=== PATIENT | female | born 1995 | race Caucasian/White ===

== ENCOUNTER 2017-01-13 13:14 | Emergency (ER) | payer OTHER ==
--- NOTE | 2017-01-13 14:03 | EDPHY ---
H & P Stated Complaint: Vomiting Time Seen by Provider: 01/13/17 13:51 HPI/ROS: CHIEF COMPLAINT: Vomiting HISTORY OF PRESENT ILLNESS: The patient is a 21-year-old female who comes to the emergency department from the urgent care but is currently asymptomatic. She had 2 episodes of vomiting this morning presented to the urgent care where she had lab work done [place] [id number]. They sent her here with concern for sepsis. She has a benign abdomen. She has not had diarrhea. She has not had a fever. She states that she now feels completely asymptomatic after receiving IV fluids and Zofran at the urgent care. They also commented that she had a positive H pylori however she denies having any heartburn or chest pain type symptoms. REVIEW OF SYSTEMS: Constitutional: denies: chills, fever, recent illness, recent injury EENTM: denies: blurred vision, double vision, nose congestion Respiratory: denies: cough, shortness of breath Cardiac: denies: chest pain, irregular heart rate, lightheadedness, palpitations Gastrointestinal/Abdominal: See HPI Genitourinary: denies: dysuria, frequency, hematuria, pain Musculoskeletal: denies: joint pain, muscle pain Skin: denies: lesions, rash, jaundice, bruising Neurological: denies: headache, numbness, paresthesia, tingling, dizziness, weakness Hematologic/Lymphatic: denies: blood clots, easy bleeding, easy bruising Immunologic/allergic: denies: HIV/AIDS, transplant EXAM: GENERAL: Well-appearing, well-nourished and in no acute distress. HEAD: Atraumatic, normocephalic. EYES: Pupils equal round and reactive to light, extraocular movements intact, sclera anicteric, conjunctiva are normal. ENT: TMs normal, nares patent, oropharynx clear without exudates. Moist mucous membranes. NECK: Normal range of motion, supple without lymphadenopathy or JVD. LUNGS: Breath sounds clear to auscultation bilaterally and equal. No wheezes rales or rhonchi. HEART: Regular rate and rhythm without murmurs, rubs or gallops. ABDOMEN: Soft, nontender, normoactive bowel sounds. No guarding, no rebound. No masses appreciated. BACK: No CVA tenderness, no spinal tenderness, step-offs or deformities EXTREMITIES: Normal range of motion, no pitting or edema. No clubbing or cyanosis. NEUROLOGICAL: Cranial nerves II through XII grossly intact. Normal speech, normal gait. 5/5 strength, normal movement in all extremities, normal sensation PSYCH: Normal mood, normal affect. SKIN: Warm, dry, normal turgor, no visible rashes or lesions. Source: Patient Exam Limitations: No limitations - Personal History LMP (Females 10-55): Extended Cycle BCP/Inj Current Tetanus/Diphtheria Vaccine: Yes Current Tetanus Diphtheria and Acellular Pertussis (TDAP): Yes Tetanus Vaccine Date: 2014 - Medical/Surgical History Hx Asthma: No Hx Chronic Respiratory Disease: No Hx Diabetes: No Hx Cardiac Disease: No Hx Renal Disease: No Hx Cirrhosis: No Hx Alcoholism: No Hx HIV/AIDS: No Hx Splenectomy or Spleen Trauma: No Other PMH: sports injuries - Family History Significant Family History: No pertinent family hx - Social History Smoking Status: Never smoked Alcohol Use: Sober Drug Use: None Constitutional: Initial Vital Signs Temperature (C) 37.1 C 01/13/17 13:31 Heart Rate 88 01/13/17 13:31 Respiratory Rate 16 01/13/17 13:31 Blood Pressure 135/75 H 01/13/17 13:31 O2 Sat (%) 97 01/13/17 13:31 O2 Delivery Mode Room Air Allergies/Adverse Reactions: No Known Allergies Allergy (Unverified 01/13/17 13:30) Home Medications: Medication Instructions Recorded Cyclobenzaprine 01/13/17 Depo-Provera 01/13/17 Diazepam 01/13/17 Zofran 01/13/17 Medical Decision Making ED Course/Re-evaluation: The patient's abdominal exam is benign. She has received a Zofran prescription from the urgent care. I do not feel that any further workup is indicated at this time. Patient is happy with this and declines further testing. We discussed indications for returning. 2:00 p.m. we attempted to call to the urgent care but they stated that the left for the day and they were not sure why she was sent here. Differential Diagnosis: Partial list of the Differential diagnosis considered include but were not limited to; gastritis, food poisoning, urinary bowel disease and although unlikely based on the history and physical exam, I also considered ulcerative colitis, peptic ulcer disease, . I discussed these differential diagnoses and the plan with the patient as well as the usual and expected course. The patient understands that the diagnosis is provisional and that in medicine we are not always correct and that further workup is often warranted. Usual and customary warnings were given. All of the patient's questions were answered. The patient was instructed to return to the emergency department should the symptoms at all worsen or return, otherwise to followup with the physician as we discussed. Departure - Departure Disposition: Home, Routine, Self-Care Clinical Impression: Acute gastroenteritis Condition: Fair Instructions: Acute Nausea and Vomiting (ED) Referrals: Dennise Gruber MD [Primary Care Provider] - As per Instructions
[2017-01-13 14:12] VITALS: BP 128/74; PULSE 70; RESP 14; TEMP 98.4; O2SAT 94
== END 2017-01-13 14:10 | disposition home or self-care (01) ==
DX: K52.9 Noninfective gastroenteritis and colitis, unspecified (principal)

== ENCOUNTER 2017-01-14 02:25 | Emergency (ER) | payer OTHER ==
[2017-01-14 02:50] LABS: % IMMATURE GRANULYOCYTES 0.6 % (0.0-1.1); ABSOLUTE IMMATURE GRANULOCYTES 0.13 10^3/uL (0.00-0.10); ADD DIFF? NO; ADD MORPH? NO; ADD SCAN? NO; ATYPICAL LYMPHOCYTE FLAG 10 (0-99); FRAGMENT RBC FLAG 0 (0-99); HEMATOCRIT 47.5 % (38.0-47.0); LEFT SHIFT FLG 0 (0-99); LIPEMIA HEMOLYSIS FLAG 80 (0-99); MEAN CELL HEMOGLOBIN CONCENTR. 33.7 g/dL (32.4-36.7); MEAN CELL VOLUME 86.1 fL (81.5-99.8); MEAN PLATELET VOLUME 10.1 fL (8.7-11.7); PLATELET CLUMPS FLAG 0 (0-99); PLATELET COUNT 286 10^3/uL (150-400); RED BLOOD CELL COUNT 5.52 10^6/uL (4.18-5.33); RED CELL DISTRIBUTION WIDTH 13.2 % (11.5-15.2)
[2017-01-14 03:00] LABS: ALANINE AMINOTRANSFERASE 31 IU/L (9-52); ALBUMIN 5.2 g/dL (3.5-5.0); ALKALINE PHOSPHATASE 72 IU/L (38-126); ANION GAP 18 mEq/L (8-16); ASPARTATE AMINOTRANSFERASE 19 IU/L (14-46); BILIRUBIN,TOTAL 0.9 mg/dL (0.1-1.4); CALCIUM 10.7 mg/dL (8.5-10.4); CARBON DIOXIDE 17 mEq/l (22-31); CHLORIDE 111 mEq/L (97-110); CREATININE 0.6 mg/dL (0.6-1.0); GLOMERULAR FILTRATION RATE > 60; GLUCOSE 93 mg/dL (70-100); POTASSIUM 3.8 mEq/L (3.5-5.2); SODIUM 146 mEq/L (134-144); TOTAL PROTEIN 8.4 g/dL (6.3-8.2)
[2017-01-14] MEDS ORDERED: NS 1,000 ML IV ONE ×2 (03:00→03:19)
--- NOTE | 2017-01-14 04:05 | EDPHY ---
H & P Stated Complaint: NAUSEA VOMITING AND DIARRHEA OFF AND ON FOR WEEKS Time Seen by Provider: 01/14/17 02:28 HPI/ROS: HPI The patient presents with nausea, vomiting, diarrhea which began yesterday and has been persistent. The patient was seen at an urgent care yesterday and was given IV fluids, Zofran. She had H pylori testing which was positive and was started on a PPI. She came here for evaluation as encouraged by the urgent care. She had labs that did reveal leukocytosis and some dehydration. She was able to tolerate p.o.. She went home and was feeling fine, however at night had multiple episodes of nonbloody nonbilious emesis followed by watery diarrhea. She was feeling dizzy and unwell and her mother brought her into the emergency room. She has had 2 similar episodes that lasted for about a day over the last 1 month which began with vomiting and resolved on their own. Her mother has come in from [place] to watch over her given that these symptoms are prevented her from attending her summer courses. REVIEW OF SYSTEMS Constitutional: No fever, no chills. Eyes: No discharge. ENT: No sore throat. Cardiovascular: No chest pain, no palpitations. Respiratory: No cough, no shortness of breath. Gastrointestinal: See HPI Genitourinary: No hematuria. Musculoskeletal: No back pain. Skin: No rashes. Neurological: No headache. PMHx: Otherwise healthy Soc Hx: College student PHYSICAL General Appearance: Alert, no distress Eyes: Pupils equal and round no pallor or injection ENT, Mouth: Mucous membranes dry Respiratory: There are no retractions, lungs are clear to auscultation Cardiovascular: Regular rate and rhythm Gastrointestinal: Abdomen is soft and non-tender, no masses, bowel sounds normal Neurological: A&O, moves all extremities Skin: Warm and dry, no rashes Musculoskeletal: Neck is supple non tender Extremities: symmetrical, full range of motion Psychiatric: Patient is oriented X 3, there is no agitation Source: Patient, Family, Old records - Personal History Current Tetanus/Diphtheria Vaccine: Yes Current Tetanus Diphtheria and Acellular Pertussis (TDAP): Yes Tetanus Vaccine Date: 2014 - Medical/Surgical History Hx Asthma: No Hx Chronic Respiratory Disease: No Hx Diabetes: No Hx Cardiac Disease: No Hx Renal Disease: No Hx Cirrhosis: No Hx Alcoholism: No Hx HIV/AIDS: No Hx Splenectomy or Spleen Trauma: No Other PMH: sports injuries, ACID REFLUX - Social History Smoking Status: Never smoked Constitutional: Initial Vital Signs Temperature (C) 37.0 C 01/14/17 02:25 Heart Rate 95 01/14/17 02:25 Respiratory Rate 18 01/14/17 02:25 Blood Pressure 120/96 H 01/14/17 02:25 O2 Sat (%) 97 01/14/17 02:25 O2 Delivery Mode Room Air Allergies/Adverse Reactions: No Known Allergies Allergy (Unverified 01/14/17 02:37) Home Medications: Medication Instructions Recorded Cyclobenzaprine 01/13/17 Depo-Provera 01/13/17 Diazepam 01/13/17 Zofran 01/13/17 Omeprazole 10 mg PO 01/14/17 Promethazine HCl [Phenergan 25mg 25 mg PO Q6H PRN #20 tab 01/14/17 (*)] Medical Decision Making Differential Diagnosis: This is a 21-year-old female who is healthy who presents brought in by her mother for nausea, vomiting, diarrhea which has been present for the last 1 day. She was seen at an urgent care yesterday and then came to the ER for further evaluation. Her labs did reveal leukocytosis, she has not had any imaging. On exam, her abdominal exam is benign. She is somewhat dehydrated. Plan for IV fluids, basic labs, stool culture. In the emergency room, the patient was given 2 L of normal saline for presumed volume depletion. She was given Zofran for nausea. Labs were checked and did reveal a leukocytosis with signs of hemoconcentration which is likely caused by underlying dehydration. She did have a mild acidosis as well. Stool was sent for PCR testing though has not resulted yet. After fluid bolus she was able to tolerate a fluid challenge by mouth without difficulty. However she began to feel more nauseated. She was given famotidine and Haldol for this with improvement in her symptoms. She was discharged home with her mother. She was encouraged to follow up with the GI referral she was given yesterday. - Data Points Laboratory Results: Laboratory Results 01/14/17 02:41 01/14/17 02:41 Microbiology Results: MICROBIOLOGY 01/14/17 02:35 Stool Gastrointestinal Tract Panel (PCR) - Final No Organism Detected Medications Given: Discontinued Medications Diphenhydramine HCl (Benadryl Injection) 25 mg IVP EDNOW ONE Stop: 01/14/17 07:04 Last Admin: 01/14/17 07:00 Dose: 25 mg Famotidine (Pepcid) 20 mg IVP EDNOW ONE Stop: 01/14/17 06:13 Last Admin: 01/14/17 06:20 Dose: 20 mg Haloperidol Lactate (Haldol Injection) 2.5 mg IVP EDNOW ONE Stop: 01/14/17 06:13 Last Admin: 01/14/17 06:22 Dose: 2.5 mg Sodium Chloride (Ns) 1,000 mls @ 0 mls/hr IV ONCE ONE; Wide Open PRN Reason: Protocol Stop: 01/14/17 03:01 Last Admin: 01/14/17 02:50 Dose: 1,000 mls Sodium Chloride (Ns) 1,000 mls @ 0 mls/hr IV ONCE ONE; Wide Open PRN Reason: Protocol Stop: 01/14/17 03:20 Last Admin: 01/14/17 03:25 Dose: 1,000 mls Ondansetron HCl (Zofran) 4 mg IVP EDNOW ONE Stop: 01/14/17 05:48 Last Admin: 01/14/17 05:53 Dose: 4 mg Departure - Departure Disposition: Home, Routine, Self-Care Clinical Impression: Nausea & vomiting, Diarrhea Condition: Good Instructions: Acute Nausea and Vomiting (ED) Additional Instructions: Please take only clear liquids until your feeling better. You should take small sips over a long period of time. Please return to the emergency room if your worse in any way. We did send your stool for more testing in you should get a call if anything turns up positive. Referrals: Dennise Gruber MD [Primary Care Provider] - As per Instructions Harpal Phelan MD [[facility] [place] - As per Instructions Prescriptions: Promethazine HCl [Phenergan 25mg (*)] 25 mg PO Q6H PRN #20 tab PRN Reason: vomiting
[2017-01-14 04:33] VITALS: PULSE 82
[2017-01-14 05:41] LABS: COLOR YELLOW; LEUKOCYTE ESTERASE,URINE NEGATIVE (NEGATIVE); NITRITE,URINE NEGATIVE (NEGATIVE)
[2017-01-14] MEDS ORDERED: ONDANSETRON 4 MG/2 ML VIAL IVP ONE (05:47)
[2017-01-14] MEDS ORDERED: FAMOTIDINE 20 MG/2 ML SDV IVP ONE (06:12)
[2017-01-14] MEDS ORDERED: HALOPERIDOL LACT 5 MG/ML INJ IVP ONE (06:12)
[2017-01-14 06:24] VITALS: BP 123/73; RESP 14; O2SAT 96
[2017-01-14 07:05] VITALS: TEMP 98.8
== END 2017-01-14 07:03 | disposition home or self-care (01) ==
DX: R19.7 Diarrhea, unspecified (principal); R11.2 Nausea with vomiting, unspecified
CPT/HCPCS: 96374; J1200; J2405

== ENCOUNTER 2017-01-24 04:39 | Emergency (ER) | payer OTHER ==
[2017-01-24 04:45] VITALS: TEMP 98.4
--- NOTE | 2017-01-24 04:47 | EDPHY ---
H & P Stated Complaint: n/v, HPI/ROS: HPI CHIEF COMPLAINT: Nausea vomiting HISTORY OF PRESENT ILLNESS: This patient very pleasant 21-year-old female, significant past medical history for nausea vomiting. Patient was recently here on January 13 and January 14 for persistent nausea vomiting. She now returns to the emergency room this evening with onset of nausea vomiting that started abruptly around 2:00 a.m.. She tells me she had 5 episodes of vomiting. Nonbloody. No abdominal pain no chest pain. She became concerned that would not stop so she decided come the emergency room. She is tells me in the past she has done very well with IV Haldol and IV fluids. She would like to try this again. Of note she does tell me that before her episodes of nausea vomiting started consistently she had smoked marijuana daily. She has been doing research on cyclic vomiting syndrome and marijuana induced nausea vomiting. She is due to have an endoscopy done by Gastroenterology on Wednesday to rule out stomach and since esophageal disease. She does tell me that she did have a positive H pylori test. Upon arrival to the emergency room she is not vomiting she is drinking sips of water. She denies abdominal pain fever chest pain or shortness of breath. She otherwise appears well Past Medical History: Acute nausea vomiting Past Surgical History: No recent surgery Social History: Denies daily use of tobacco, alcohol, smoke marijuana daily and regularly before this onset of nausea vomiting this month. No longer smokes marijuana. Family History: Noncontributory ROS REVIEW OF SYSTEMS: A comprehensive 10 point review of systems is otherwise negative aside from elements mentioned in the history of present illness. Exam Constitutional appears well nontoxic, triage nursing summary reviewed, vital signs reviewed, awake/alert. Eyes normal conjunctivae and sclera, EOMI, PERRLA. HENT normal inspection, atraumatic, moist mucus membranes, no epistaxis, neck supple/ no meningismus, no raccoon eyes. Respiratory clear to auscultation bilaterally, normal breath sounds, no respiratory distress, no wheezing. Cardiovascular rate normal, regular rhythm, no murmur, no edema, distal pulses normal. Gastrointestinal soft, non-tender, no rebound, no guarding, normal bowel sounds, no distension, no pulsatile mass. Genitourinary no CVA tenderness. Musculoskeletal no midline vertebral tenderness, full range of motion, no calf swelling, no tenderness of extremities, no meningismus, good pulses, neurovascularly intact. Skin pink, warm, & dry, no rash, skin atraumatic. Neurologic awake, alert and oriented x 3, AAOx3, moves all 4 extremities equally, motor intact, sensory intact, CN II-XII intact, normal cerebellar, normal vision, normal speech. Psychiatric normal mood/affect. Heme/Lymph/Immune no lymphadenopathy. Differential Diagnosis: Includes but is not limited to in a particular order, dehydration, electrolyte disturbance, acute nausea vomiting, gastritis, peptic ulcer disease, H pylori, esophagitis, reflux, nausea vomiting from history of marijuana use Medical Decision Making: Plan for this patient IV establishment, IV fluid bolus , IV Haldol for nausea vomiting she understands the risk of getting Haldol and the side effects, also would like Benadryl IV Benadryl 25 mg, abdomen is soft no indication for scanning or imaging. Will re-evaluate after fluid bolus nausea medicine. Check abdominal blood work. Re-evaluation: 0610: Re-evaluation at this time patient resting comfortably she feels much better after IV Benadryl IV Haldol IV fluids. Blood work has been reviewed. Somewhat hemoconcentrated. However re-examination at this time abdomen is soft nontender she is not vomiting she p.o. challenge well she feels comfortable going home. I will give her limited prescription for Ativan for acute nausea vomiting. I do recommend she follows up with Gastroenterology. Refrain from smoking marijuana. She understands. Also return precautions given includes worsening abdominal pain, fever, vomiting. She understands. Source: Patient - Personal History LMP (Females 10-55): Extended Cycle BCP/Inj Current Tetanus/Diphtheria Vaccine: Yes Current Tetanus Diphtheria and Acellular Pertussis (TDAP): Yes Tetanus Vaccine Date: 2014 - Medical/Surgical History Hx Asthma: No Hx Chronic Respiratory Disease: No Hx Diabetes: No Hx Cardiac Disease: No Hx Renal Disease: No Hx Cirrhosis: No Hx Alcoholism: No Hx HIV/AIDS: No Hx Splenectomy or Spleen Trauma: No Other PMH: sports injuries, ACID REFLUX - Social History Smoking Status: Never smoked Constitutional: Initial Vital Signs Temperature (C) 36.9 C 01/24/17 04:43 Heart Rate 74 01/24/17 04:43 Respiratory Rate 16 01/24/17 04:43 Blood Pressure 110/88 H 01/24/17 04:43 O2 Sat (%) 99 01/24/17 04:43 O2 Delivery Mode Room Air Allergies/Adverse Reactions: No Known Allergies Allergy (Unverified 01/14/17 02:37) Home Medications: Medication Instructions Recorded Cyclobenzaprine 01/13/17 Depo-Provera 01/13/17 Diazepam 01/13/17 Zofran 01/13/17 Omeprazole 10 mg PO 01/14/17 Promethazine HCl [Phenergan 25mg 25 mg PO Q6H PRN #20 tab 01/14/17 (*)] LORazepam [Ativan] 1 mg PO DAILY #5 tablet 01/24/17 Medical Decision Making - Data Points Laboratory Results: Laboratory Results 01/24/17 05:05 01/24/17 05:05 01/24/17 01/24/17 01/24/17 05:05 05:05 05:05 WBC 15.54 10^3/uL H 10^3/uL (3.80-9.50) RBC 5.11 10^6/uL 10^6/uL (4.18-5.33) Hgb 15.2 g/dL g/dL (12.6-16.3) Hct 44.7 % % (38.0-47.0) MCV 87.5 fL fL (81.5-99.8) MCH 29.7 pg pg (27.9-34.1) MCHC 34.0 g/dL g/dL (32.4-36.7) RDW 13.4 % % (11.5-15.2) Plt Count 229 10^3/uL 10^3/uL (150-400) MPV 10.9 fL fL (8.7-11.7) Neut % (Auto) 74.5 % H % (39.3-74.2) Lymph % (Auto) 17.9 % % (15.0-45.0) [place] % (Auto) 5.7 % % (4.5-13.0) Eos % (Auto) 1.3 % % (0.6-7.6) Baso % (Auto) 0.3 % % (0.3-1.7) Nucleat RBC Rel Count 0.0 % % (0.0-0.2) Absolute Neuts (auto) 11.57 10^3/uL H 10^3/uL (1.70-6.50) Absolute Lymphs (auto) 2.78 10^3/uL 10^3/uL (1.00-3.00) Absolute Monos (auto) 0.89 10^3/uL H 10^3/uL (0.30-0.80) Absolute Eos (auto) 0.20 10^3/uL 10^3/uL (0.03-0.40) Absolute Basos (auto) 0.05 10^3/uL 10^3/uL (0.02-0.10) Absolute Nucleated RBC 0.00 10^3/uL 10^3/uL (0-0.01) Immature Gran % 0.3 % % (0.0-1.1) Immature Gran # 0.05 10^3/uL 10^3/uL (0.00-0.10) Sodium 147 mEq/L H mEq/L (134-144) Potassium 3.8 mEq/L mEq/L (3.5-5.2) Chloride 113 mEq/L H mEq/L (97-110) Carbon Dioxide 18 mEq/l L mEq/l (22-31) Anion Gap 16 mEq/L mEq/L (8-16) BUN 6 mg/dL L mg/dL (7-23) Creatinine 0.5 mg/dL L mg/dL (0.6-1.0) Estimated GFR > 60 Glucose 88 mg/dL mg/dL (70-100) Calcium 9.8 mg/dL mg/dL (8.5-10.4) Total Bilirubin 0.4 mg/dL mg/dL (0.1-1.4) Conjugated Bilirubin 0.3 mg/dL mg/dL (0.0-0.5) Unconjugated Bilirubin 0.1 mg/dL mg/dL (0.0-1.1) AST 21 IU/L IU/L (14-46) ALT 27 IU/L IU/L (9-52) Alkaline Phosphatase 66 IU/L IU/L (38-126) Total Protein 8.0 g/dL g/dL (6.3-8.2) Albumin 5.0 g/dL g/dL (3.5-5.0) Lipase 159.0 IU/L IU/L (23-300) Beta HCG, Qual NEGATIVE Medications Given: Discontinued Medications Diphenhydramine HCl (Benadryl Injection) 25 mg IVP EDNOW ONE Stop: 01/24/17 05:00 Last Admin: 01/24/17 05:11 Dose: 25 mg Haloperidol Lactate (Haldol Injection) 2.5 mg IVP EDNOW ONE Stop: 01/24/17 04:50 Last Admin: 01/24/17 05:10 Dose: 2.5 mg Sodium Chloride (Ns) 1,000 mls @ 0 mls/hr IV EDNOW ONE; Wide Open PRN Reason: Protocol Stop: 01/24/17 04:50 Last Admin: 01/24/17 05:38 Dose: 1,000 mls Sodium Chloride (Ns) 1,000 mls @ 0 mls/hr IV EDNOW ONE; Wide Open PRN Reason: Protocol Stop: 01/24/17 04:50 Last Admin: 01/24/17 05:38 Dose: 1,000 mls Departure - Departure Disposition: Home, Routine, Self-Care Clinical Impression: Nausea and vomiting Qualifiers: Vomiting type: unspecified Vomiting Intractability: intractable Qualified Code( s): R11.2 - Nausea with vomiting, unspecified Condition: Good Instructions: Dehydration (ED), Acute Nausea and Vomiting (ED) Additional Instructions: 1. I do recommend he follow up with Gastroenterology. 2. Return emergency room if develops worsening abdominal pain, fever, vomiting. 3. I have given you a limited supply of Ativan this to help with your vomiting. Only take this if you absolutely needed. Referrals: Dennise Gruber MD [Primary Care Provider] - As per Instructions Prescriptions: LORazepam [Ativan] 1 mg PO DAILY #5 tablet
[2017-01-24] MEDS ORDERED: NS 1,000 ML IV ONE (04:49)
[2017-01-24] MEDS ORDERED: HALOPERIDOL LACT 5 MG/ML INJ IVP ONE (04:49)
[2017-01-24] MEDS: NS 1,000 ML IV ONE ×2 (05:09→05:38)
[2017-01-24 05:18] LABS: % IMMATURE GRANULYOCYTES 0.3 % (0.0-1.1); ABSOLUTE IMMATURE GRANULOCYTES 0.05 10^3/uL (0.00-0.10); ADD DIFF? NO; ADD MORPH? NO; ADD SCAN? NO; ATYPICAL LYMPHOCYTE FLAG 0 (0-99); FRAGMENT RBC FLAG 0 (0-99); HEMATOCRIT 44.7 % (38.0-47.0); HEMOGLOBIN 15.2 g/dL (12.6-16.3); LEFT SHIFT FLG 0 (0-99); LIPEMIA HEMOLYSIS FLAG 90 (0-99); MEAN CELL HEMOGLOBIN 29.7 pg (27.9-34.1); MEAN CELL VOLUME 87.5 fL (81.5-99.8); MEAN PLATELET VOLUME 10.9 fL (8.7-11.7); PLATELET CLUMPS FLAG 10 (0-99); PLATELET COUNT 229 10^3/uL (150-400); RED BLOOD CELL COUNT 5.11 10^6/uL (4.18-5.33); RED CELL DISTRIBUTION WIDTH 13.4 % (11.5-15.2)
[2017-01-24 05:32] LABS: ALANINE AMINOTRANSFERASE 27 IU/L (9-52); ALKALINE PHOSPHATASE 66 IU/L (38-126); ANION GAP 16 mEq/L (8-16); ASPARTATE AMINOTRANSFERASE 21 IU/L (14-46); BILIRUBIN,TOTAL 0.4 mg/dL (0.1-1.4); BILIRUBIN-CONJUGATED 0.3 mg/dL (0.0-0.5); BILIRUBIN-UNCONJUGATED 0.1 mg/dL (0.0-1.1); CALCIUM 9.8 mg/dL (8.5-10.4); CARBON DIOXIDE 18 mEq/l (22-31); CHLORIDE 113 mEq/L (97-110); CREATININE 0.5 mg/dL (0.6-1.0); GLOMERULAR FILTRATION RATE > 60; GLUCOSE 88 mg/dL (70-100); POTASSIUM 3.8 mEq/L (3.5-5.2); SODIUM 147 mEq/L (134-144)
[2017-01-24 06:10] VITALS: BP 116/81; PULSE 90; RESP 18; O2SAT 98
== END 2017-01-24 06:17 | disposition home or self-care (01) ==
DX: R11.2 Nausea with vomiting, unspecified (principal); E86.9 Volume depletion, unspecified
CPT/HCPCS: 96374; J1200

== ENCOUNTER 2017-08-08 18:49 | Emergency (ER) | payer OTHER ==
[2017-08-08 18:56] VITALS: TEMP 98.6
[2017-08-08 19:18] VITALS: O2SAT 100
[2017-08-08] MEDS ORDERED: LORazepam 2 MG/ML INJ ONE (19:18)
[2017-08-08] MEDS ORDERED: LORazepam 2 MG/ML INJ IVP ONE (19:20)
[2017-08-08] MEDS ORDERED: NS 1,000 ML IV ONE (19:20)
--- NOTE | 2017-08-08 19:31 | EDPHY ---
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 She does not have a history of attention deficit hyperactivity disorder and got the Adderall from a friend. She also states that after taking it she felt very agitated and smokes marijuana. She has not since had some nausea and vomiting. No hematemesis or coffee-ground emesis. Denies any abdominal pain. States her heart is racing. No chest pain or shortness of breath. Patient also admits that she has some cocaine last night. No fevers or chills. No lightheadedness or fainting. ROS: 10 point Review of Systems is negative except as noted in the HPI. PMH: Denies Social History: No smoking, occasional alcohol, occasional marijuana and occasional cocaine, also uses Adderall without a prescription Family History: non-contributory Physical Exam: Gen: Awake, Alert, anxious, tachycardic HEENT: Nose: no rhinorrhea Eyes: PERRLA, EOMI Mouth: Moist mucosa Neck: Supple, no JVD Chest: nontender, lungs clear to auscultation Heart: S1, S2 normal, no murmur Abd: Soft, non-tender, no guarding Back: no CVA tenderness, no midline tenderness Ext: no edema, non-tender Skin: no rash Neuro: CN II-XII intact, Sensation grossly intact, Strength 5/5 in bilateral upper and lower extremities - Personal History LMP (Females 10-55): Extended Cycle BCP/Inj Current Tetanus/Diphtheria Vaccine: Yes Tetanus Vaccine Date: 2014 - Medical/Surgical History Hx Asthma: No Hx Chronic Respiratory Disease: No Hx Diabetes: No Hx Cardiac Disease: No Hx Renal Disease: No Hx Cirrhosis: No Hx Alcoholism: No Hx HIV/AIDS: No Hx Splenectomy or Spleen Trauma: No Other PMH: sports injuries, ACID REFLUX - Social History Smoking Status: Never smoked Constitutional: Initial Vital Signs Temperature (C) 37 C 08/08/17 18:54 Heart Rate 132 H 08/08/17 18:54 Respiratory Rate 20 08/08/17 18:54 Blood Pressure 171/95 H 08/08/17 18:54 O2 Sat (%) 98 08/08/17 18:54 O2 Delivery Mode Room Air Allergies/Adverse Reactions: No Known Allergies Allergy (Verified 08/08/17 18:53) Home Medications: Medication Instructions Recorded Cyclobenzaprine 01/13/17 Depo-Provera 01/13/17 Diazepam 01/13/17 Medical Decision Making ED Course/Re-evaluation: 22-year-old who is abusing Adderall. Is tachycardic and agitated. She is improved here after fluids and Ativan. I have cautioned her about the inappropriate use of amphetamines and the dangers that they pose. Patient improved. Will discharge with follow up with [facility]. - Data Points Medications Given: Discontinued Medications Sodium Chloride (Ns) 1,000 mls @ 0 mls/hr IV ONCE ONE; Wide Open PRN Reason: Protocol Stop: 08/08/17 19:21 Last Admin: 08/08/17 19:22 Dose: 1,000 mls Lorazepam (Ativan Injection) 2 mg IVP EDNOW ONE Stop: 08/08/17 19:21 Last Admin: 08/08/17 19:21 Dose: 2 mg Departure - Departure Disposition: Home, Routine, Self-Care Clinical Impression: Substance abuse Condition: Good Instructions: Polysubstance Abuse (ED) Additional Instructions: Please do not use any medications that are not prescribed for you. Please do not use amphetamines to improve your concentration or as a study aid unless prescribed by a physician. Follow up at [facility] in 2-3 days if you're not feeling well. Referrals: Dennise Gruber MD [Primary Care Provider] - As per Instructions
[2017-08-08 20:18] VITALS: BP 146/97; RESP 18
[2017-08-08 20:50] VITALS: PULSE 104
== END 2017-08-08 20:48 | disposition home or self-care (01) ==
DX: F19.10 Other psychoactive substance abuse, uncomplicated (principal); E86.9 Volume depletion, unspecified
CPT/HCPCS: 96374; J2060